=== PATIENT | female | born 1980 | race Caucasian/White ===

== ENCOUNTER 2020-04-14 08:15 | Outpatient (CLI) | payer MEDICAID, MEDICARE ==
[~2020-04-14] VITALS: Ht 172 cm; Wt 190.0 kg
[~2020-04-14 08:15] MED LIST: ALBU17AE23 IH; ALPR1T PO; BSP5T PO; CRS350T; CYCL10TA9 PO; EST.625T PO; FLUT12AE4; HYDR-229; IBP800T PO; MULT-608 PO; OMEP20CA6 PO; OXYC-272 PO; RT-COMBINH IH; VENL225T3 PO; [UNRECOGNIZED DRUG - OTHER]; [UNRECOGNIZED DRUG - OTHER] IV
[2020-04-14 08:24] VITALS: BP 141/65
[2020-04-14] MEDS ORDERED: diphenhydrAMINE 50 MG/ML INJ (BENADRYL) IV PRN (08:30)
[2020-04-14] MEDS ORDERED: BAMLANIVIMAB 700 MG in NS 200 ML IV ONE (08:30)
[2020-04-14] MEDS ORDERED: EPINEPHrine INJECTION 1 MG/ML AMP IM PRN (08:30)
[2020-04-14 09:49] VITALS: BP 144/83
== END 2020-04-14 10:51 ==
LOC: INFUSION 08:15
PROVIDERS: ATTEND Nurse Practitioner Family
DX: U07.1 COVID-19 (principal)